=== PATIENT | male | born 1980 | race African-American/Black ===

== ENCOUNTER 2016-12-31 18:45 | Emergency (ER) | payer MEDICAID ==
[~2016-12-31] VITALS: Ht 175.3 cm; Wt 65.9 kg
[2016-12-31 19:04] VITALS: BP 118/80
[2016-12-31] MEDS ORDERED: MAALOX/HYOSCYAMINE/LIDOCAINE 45 ML BOTTLE PO ONE (19:30)
[2016-12-31] MEDS ORDERED: MAALOX/HYOSCYAMINE/LIDOCAINE 45 ML BOTTLE ONE (19:34)
== END 2016-12-31 20:30 | disposition home or self-care (01) ==
LOC: ED 20:24
DX: K21.0 Gastro-esophageal reflux disease with esophagitis (principal)
CPT/HCPCS: 99283

== ENCOUNTER 2017-03-17 21:02 | Emergency (ER) | payer MEDICAID ==
[~2017-03-17] VITALS: Ht 175.3 cm; Wt 61.6 kg
[2017-03-17 21:10] VITALS: BP 154/95
== END 2017-03-17 22:03 | disposition home or self-care (01) ==
LOC: ED 21:52
DX: K21.9 Gastro-esophageal reflux disease without esophagitis (principal); R10.13 Epigastric pain; G89.29 Other chronic pain; R06.6 Hiccough; F17.210 Nicotine dependence, cigarettes, uncomplicated
CPT/HCPCS: 99283

== ENCOUNTER 2018-02-14 14:33 | Observation (INO) | payer MEDICAID ==
[~2018-02-14] VITALS: Ht 175.3 cm; Wt 65.0 kg
[2018-02-14 15:04] LABS: BASOPHILS # (AUTO) 0.04 x10^3/uL (0-0.1); BASOPHILS % (AUTO) 0 % (0-1); EOSINOPHILS # (AUTO) 0.01 x10^3/uL (0-0.4); EOSINOPHILS % (AUTO) 0 % (1-7); LYMPHOCYTES # (AUTO) 1.63 x10^3/uL (1-3.4); LYMPHOCYTES % (AUTO) 20 % (22-44); MD NO; MEAN CORPUSCULAR HEMOGLOBIN 28.9 pg (27.5-34.5); MEAN CORPUSCULAR HGB CONC 33.8 g/dL (33.2-36.2); MEAN CORPUSCULAR VOLUME 85.5 fL (81-97); MEAN PLATELET VOLUME 6.9 fL (7.4-10.4); MONOCYTES # (AUTO) 0.52 x10^3/uL (0.2-0.8); MONOCYTES % (AUTO) 6 % (2-9); NEUTROPHILS # (AUTO) 6.02 x10^3/uL (1.8-6.8); NEUTROPHILS % (AUTO) 73 % (42-75); PLATELET COUNT 244 x10^3/uL (130-400); RED BLOOD COUNT 5.44 x10^6/uL (4.38-5.82); RED CELL DISTRIBUTION WIDTH 12.7 % (9.4-14.8)
[2018-02-14 15:13] LABS: ALBUMIN 3.1 g/dL (3.4-5.0); ANION GAP 10 mmol/L (5-15); CALCIUM 8.7 mg/dL (8.5-10.1); CHLORIDE 99 mmol/L (98-107)
[2018-02-14 15:14] LABS: SALICYLATE LEVEL < 1.7 mg/dL (2.8-20.0)
[2018-02-14 15:17] LABS: ALANINE AMINOTRANSFERASE 24 U/L (12-78); ALKALINE PHOSPHATASE 95 U/L (45-117); CREATININE 1.44 mg/dL (0.7-1.3); TOTAL PROTEIN 8.8 g/dL (6.4-8.2)
[2018-02-14 15:25] LABS: ACETAMINOPHEN < 2 mcg/mL (10-30)
[2018-02-14 17:33] LABS: AMPHETAMINE SCREEN, URINE Positive (Negative); BARBITURATE SCREEN, URINE Negative (Negative); BENZODIAZEPINE SCREEN, URINE Negative (Negative); CANNABINOID SCREEN, URINE Positive (Negative); COCAINE SCREEN, URINE Negative (Negative); METHADONE SCREEN, URINE Negative (Negative); OPIATE SCREEN, URINE Negative (Negative)
[2018-02-14] MEDS ORDERED: LORazepam 2 MG/ML, 1ML IM PRN (20:00)
[2018-02-14] MEDS ORDERED: ONDANSETRON ODT 4 MG PO PRN (20:00)
[2018-02-14] MEDS ORDERED: DOCUSATE 100 MG CAPSULE PO PRN (20:00)
[2018-02-14] MEDS ORDERED: ZIPRASIDONE 20 MG INJ IM PRN (20:00)
[2018-02-14] MEDS ORDERED: ZIPRASIDONE 20MG CAPSULE PO PRN (20:00)
[2018-02-15 00:16] VITALS: BP 118/77
[2018-02-15 08:06] VITALS: BP 102/64
[2018-02-15 19:47] VITALS: BP 98/53
[2018-02-16 08:33] VITALS: BP 117/75
== END 2018-02-16 14:33 ==
LOC: ED 18:15 → EDIP 21:22 → 3E 02-15 00:15
PROVIDERS: ADMIT Internal Medicine; ATTEND Internal Medicine
DX: R45.851 Suicidal ideations (principal); F12.19 Cannabis abuse with unspecified cannabis-induced disorder; F15.10 Other stimulant abuse, uncomplicated; K21.9 Gastro-esophageal reflux disease without esophagitis; F32.9 Major depressive disorder, single episode, unspecified; F17.200 Nicotine dependence, unspecified, uncomplicated; N17.0 Acute kidney failure with tubular necrosis; E86.0 Dehydration; E44.0 Moderate protein-calorie malnutrition
CPT/HCPCS: 36415; 80053; 80307; 80329; 85025; 99285; G0378; Q0162; G0480